=== PATIENT | male | born 1965 | race Caucasian/White ===

== ENCOUNTER → 2023-10-24 | Emergency (ER) | payer OTHER ==
[~2023-10-24] VITALS: Ht 190.5 cm; Wt 118.0 kg
[2023-10-24] MEDS: HYDROcodone/acetaminophen 5mg/325mg tablet PO ONE (16:52)
[2023-10-24 17:12] VITALS: BP 160/98; PULSE 92; RESP 16; TEMP 97.7; O2SAT 95
== END | disposition home or self-care (01) ==
LOC: ER 13:28
DX: S52.181A Other fracture of upper end of right radius, initial encounter for closed fracture (principal); W18.39XA Other fall on same level, initial encounter; Y93.89 Activity, other specified; Y92.89 Other specified places as the place of occurrence of the external cause; Y99.8 Other external cause status
CPT/HCPCS: 29105; 73030; 73090; 99283; 99284; A4565; A6449